=== PATIENT | male | born 2000 | race Caucasian/White ===

== ENCOUNTER 2022-01-06 07:14 | Outpatient (CLI) | payer MEDICAID ==
[~2022-01-06] VITALS: Ht 195.6 cm; Wt 122.5 kg
[2022-01-06 07:45] LABS: TOTAL HEMOGLOBIN 15.4 G/dl (14.0-18.0)
[2022-01-06] MEDS ORDERED: albuterol 2.5 MG/3 ML nebule NEB PRN (08:05)
== END 2022-01-06 23:59 | disposition home or self-care (01) ==
LOC: RT 07:14
PROVIDERS: ATTEND Physician Assistant
DX: J43.8 Other emphysema (principal); I26.99 Other pulmonary embolism without acute cor pulmonale; G47.30 Sleep apnea, unspecified
CPT/HCPCS: 85018; 94060; 94727; 94729; 94760